=== PATIENT | female | born 1980 | race Caucasian/White ===

== ENCOUNTER → 2021-06-28 17:07 | Outpatient (BNVA) | payer BC, SELFPAY | PROVIDERS: Family Provider Nurse Practitioner; Visit Provider Nurse Practitioner Family | DX: J02.0 Streptococcal pharyngitis (principal) | CPT/HCPCS: 87880 ==

== ENCOUNTER → 2021-08-01 09:30 | Outpatient (BNVA) | payer BC, MEDICAID, SELFPAY | PROVIDERS: Family Provider Nurse Practitioner; Visit Provider Nurse Practitioner Family | DX: Z20.822 Contact with and (suspected) exposure to COVID-19 (principal) | CPT/HCPCS: 87635 ==

== ENCOUNTER → 2021-08-24 15:06 | Outpatient (BNVA) | payer BC, MEDICAID, SELFPAY | PROVIDERS: Family Provider Nurse Practitioner; Visit Provider Nurse Practitioner Family | DX: J02.9 Acute pharyngitis, unspecified (principal) | CPT/HCPCS: 87880 ==

== ENCOUNTER → 2021-11-09 10:09 | Outpatient (BNVA) | payer BC, MEDICAID, SELFPAY | PROVIDERS: Family Provider Nurse Practitioner; Visit Provider Emergency Medicine | DX: R68.89 Other general symptoms and signs (principal); J02.9 Acute pharyngitis, unspecified | CPT/HCPCS: 87071; 87400; 87880 ==

== ENCOUNTER → 2022-03-28 14:11 | Outpatient (BNVA) | payer BC, MEDICAID, SELFPAY | PROVIDERS: Visit Provider Emergency Medicine | DX: Z20.822 Contact with and (suspected) exposure to COVID-19 (principal); J02.9 Acute pharyngitis, unspecified; J02.0 Streptococcal pharyngitis | CPT/HCPCS: 87426; 87880 ==

== ENCOUNTER → 2022-06-07 13:22 | Outpatient (BNVA) | payer BC, MEDICAID, SELFPAY | PROVIDERS: Visit Provider Nurse Practitioner Family | DX: R05.9 Cough, unspecified (principal); R43.2 Parageusia; J06.9 Acute upper respiratory infection, unspecified | CPT/HCPCS: 87426; 87880 ==

== ENCOUNTER → 2022-07-22 17:23 | Outpatient (BNVA) | payer BC, MEDICAID, SELFPAY | PROVIDERS: Visit Provider Nurse Practitioner Family | DX: R50.9 Fever, unspecified (principal); Z20.822 Contact with and (suspected) exposure to COVID-19 | CPT/HCPCS: 87071; 87426; 87880 ==

== ENCOUNTER → 2022-08-17 14:48 | Outpatient (BNVA) | payer BC, MEDICAID, SELFPAY | PROVIDERS: Visit Provider Emergency Medicine | DX: J02.9 Acute pharyngitis, unspecified (principal) | CPT/HCPCS: 87071; 87880 ==

== ENCOUNTER 2022-09-24 12:09 | Outpatient (CLI) | payer BC, MEDICAID, SELFPAY ==
--- NOTE | 2022-09-24 12:43 | XR_ITS ---
WS: [id number] Lumbar spine, 3 views, 09/24/2022 Clinical Data: CHRONIC BILATERAL LOW BACK PAIN W/BILATERAL SCIATICA Comparison: None. Findings: No compression fractures or subluxation is seen. There is degenerative disc narrowing at L4-L5 and L5 -S1. There is osteophyte formation at L4-L5. The transverse processes and SI joints are normal. XR/XR lumbar spine 2-3V* [id number] Impression: Degenerative disc narrowing at L4-L5 and L5-S1 with accompanying osteoarthritis
--- NOTE | 2022-09-24 12:57 | XR_ITS ---
WS: [id number] Sacroiliac joints, 3 views, 09/24/2022 Clinical Data: CHRONIC BILATERAL LOW BACK PAIN WITH BILATERAL SCIATICA Comparison: None. Findings: The SI joints are normal in width. No erosion, sclerosis or destruction is seen. There are no fractur es or dislocations. The adjacent visualized pelvis and hips are unremarkable. XR/XR sacroiliac jts m 3V [id number] Impression: Negative SI joints.
== END 2022-09-24 12:10 | disposition home or self-care (01) ==
PROVIDERS: PCP Family Medicine; Visit Provider Family Medicine
DX: M54.42 Lumbago with sciatica, left side (principal); M54.41 Lumbago with sciatica, right side; G89.29 Other chronic pain; M48.061 Spinal stenosis, lumbar region without neurogenic claudication; M48.07 Spinal stenosis, lumbosacral region; M47.816 Spondylosis without myelopathy or radiculopathy, lumbar region; M47.817 Spondylosis without myelopathy or radiculopathy, lumbosacral region
CPT/HCPCS: 72100; 72202

== ENCOUNTER 2023-01-02 08:34 | Outpatient (CLI) | payer BC, MEDICAID, SELFPAY ==
[2023-01-02 09:23] LABS: Basophils % 0.8 %; Eosinophils # 0.2 10^3/uL (0.0-0.8); Eosinophils % 4.2 %; Hematocrit 38.5 % (37.0-47.0); Hemoglobin 12.7 g/dL (11.5-15.3); Lymphocytes # 1.9 10^3/uL (0.8-4.8); Mean Corpuscular Hemoglobin 31.4 pg (28.0-34.0); Mean Corpuscular Volume 95.1 fl (81-99); Mean Platelet Volume 9.4 fL (7.4-10.4); Monocytes # 0.5 10^3/uL (0.2-0.9); Monocytes % 10.1 %; Neutrophils # 2.55 10^3/uL (1.8-7.7); Neutrophils % 48.5 %; Nucleated Red Blood Cells % 0 %; Platelet Count 275 10^3/cmm (130-400); Red Blood Count 4.05 10^6/uL (4.1-5.3); Red Cell Distribution Width 13.4 % (12.1-15.1); White Blood Count 5.3 10^3/uL (4.0-10.0)
[2023-01-02 09:53] LABS: Iron 62 ug/dL (37-145); Percent Saturation 23.4 % (20-50); Total Iron Binding Capacity 264 mcg/dl; Unsaturated Iron Binding 202 ug/dL (112-347)
[2023-01-02 10:25] LABS: Free T4 Free Thyroxine 1.28 ng/dL (0.82-1.77)
== END 2023-01-02 08:35 | disposition home or self-care (01) ==
PROVIDERS: PCP Family Medicine; Visit Provider Family Medicine
DX: E03.9 Hypothyroidism, unspecified (principal); D50.0 Iron deficiency anemia secondary to blood loss (chronic)
CPT/HCPCS: 36415; 83540; 83550; 84439; 84443; 85025

== ENCOUNTER → 2023-04-20 15:26 | Outpatient (BNVA) | payer BC, MEDICAID, SELFPAY | PROVIDERS: PCP Family Medicine; Visit Provider Registered Nurse Neonatal Intensive Care | DX: R50.9 Fever, unspecified (principal); B34.9 Viral infection, unspecified | CPT/HCPCS: 87426 ==

== ENCOUNTER 2023-11-09 07:55 | Outpatient (CLI) | payer BC, MEDICAID, SELFPAY ==
--- NOTE | 2023-11-09 07:59 | MM_ITS ---
WS: [id number] BILATERAL SCREENING DIGITAL TOMOSYNTHESIS MAMMOGRAM WITH CAD HISTORY: SCREENING COMPARISON: 12/10/2021 Bilateral CC and MLO views with tomosynthesis and synthetic mammography submitted. Computer aided det ection analyzed. Breast composition: There are scattered areas of fibroglandular density. No suspicious masses, microc alcifications or architectural distortion. Benign calcifications in each breast. MM/[place] [id number] IMPRESSION: BI-RADS: 2-Benign FOLLOW UP: 1 Year Follow-up
== END 2023-11-09 07:56 | disposition home or self-care (01) ==
LOC: RAD 07:55
PROVIDERS: PCP Family Medicine; Visit Provider Family Medicine
DX: Z12.31 Encounter for screening mammogram for malignant neoplasm of breast (principal)
CPT/HCPCS: 77063; 77067

== ENCOUNTER 2024-02-22 09:54 | Outpatient (CLI) | payer BC, MEDICAID, SELFPAY ==
[2024-02-22 10:42] LABS: Alanine Aminotransferase 24 U/L (0-33); Albumin Level 4.4 g/dL (3.5-5.2); Alkaline Phosphatase 59 U/L (35-105); Anion Gap 15.2 (5-19); Aspartate Amino Transferase 17 U/L (0-32); Blood Urea Nitrogen 14 mg/dL (6-20); Calcium 8.9 mg/dL (8.5-10.5); Carbon Dioxide 23 mmol/L (22-29); Chloride 104 mmol/L (98-107); Chol HDL Ratio 2.79 mg/dL (0.0-4.40); Cholesterol 109 mg/dL (0-200); Globulin 2.4 g/dL (1.3-4.6); Glomerular Filtration Rate 67.7 mL/min (90-130); Glucose 87 mg/dL (65-115); HDL Cholesterol 39 mg/dL (60-100); LDL Cholesterol Calculated 51 mg/dL (50-129); LDL HDL Ratio 1.31 RATIO (0.00-3.22); Magnesium 1.9 mg/dL (1.7-2.3); Osmolality Calculated 286 mOsm/kg (285-295); Potassium 4.2 mmol/L (3.5-5.1); Sodium 138 mmol/L (136-145); Total Bilirubin 0.4 mg/dL (0.15-1.2); Total Protein 6.8 g/dL (6.6-8.7); Triglycerides 94 mg/dL (0-150)
== END 2024-02-22 09:55 | disposition home or self-care (01) ==
LOC: LAB 09:56
PROVIDERS: PCP Family Medicine; Visit Provider Family Medicine
DX: E78.2 Mixed hyperlipidemia (principal); E03.9 Hypothyroidism, unspecified
CPT/HCPCS: 36415; 80053; 80061; 83735; 84443

== ENCOUNTER 2024-07-05 21:54 | Emergency (ER) | payer BC, MEDICAID, SELFPAY ==
[2024-07-05 21:59] VITALS: BP 145/95; PULSE 77; RESP 14; TEMP 36.1; O2SAT 100
[2024-07-05] MEDS: lidocaine 2% INJ 20 mL 10 ML INJECTION (22:36)
[2024-07-05] MEDS: tetanus-dipt-pertussis 0.5 mL SDV IM (22:36)
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
[2024-07-05] MEDS: cephALEXin 500 mg Capsule PO (22:44)
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
[2024-07-06 00:05] VITALS: BP 132/80; PULSE 64; RESP 16; O2SAT 99
== END 2024-07-06 00:06 | disposition home or self-care (01) ==
PROVIDERS: Emergency Provider Physician Assistant; PCP Family Medicine
DX: S61.412A Laceration without foreign body of left hand, initial encounter (principal); W26.0XXA Contact with knife, initial encounter; Z87.891 Personal history of nicotine dependence
CPT/HCPCS: 12002; 73130; 90471; 90715; 99283

== ENCOUNTER 2024-09-26 08:57 | Outpatient (CLI) | payer BC, MEDICAID, SELFPAY ==
--- NOTE | 2024-09-26 09:02 | MM_ITS ---
WS: [id number] DIAGNOSTIC BILATERAL DIGITAL BREAST TOMOSYNTHESIS MAMMOGRAPHY WITH CAD RIGHT breast ultrasound, limited History: Palpable area RIGHT upper outer quadrant, posterior. COMPARISON: 11/09/2023, 12/10/2021 TECHNIQUE: Bilateral craniocaudad, mediolateral oblique, and mediolateral views are submitted with tomosynthesis and SM. Computer aided detection utilized. Breast composition: There are scattered areas of fibroglandular density. Triangular palpable marker in the upper outer quadrant of the RIGHT breast is noted. There is no associated mass or distortion. There are a few benign calcifications in each breast which are stable. No new mass or nodule. RIGHT breast ultrasound, limited. Ultrasound directed to the palpable abnormality at 9:00, 5 cm from the nipple. Nearly isoechoic ovoid mass measures 2.0 x 2.0 x 0.5 cm. This is a very superficial mass and most consistent with a lipoma. There is no increased vascularity. MM/MM diag BI tomosynthesis [id number] IMPRESSION: BI-RADS: 2 - Benign. FOLLOW UP: 1 Year Follow-up Palpable area in the RIGHT breast at 9:00 corresponds to a benign lipoma.
== END 2024-09-26 08:58 | disposition home or self-care (01) ==
LOC: RAD 08:58
PROVIDERS: PCP Family Medicine; Visit Provider Nurse Practitioner Family
DX: R59.0 Localized enlarged lymph nodes (principal); R92.323 Mammographic fibroglandular density, bilateral breasts; R92.1 Mammographic calcification found on diagnostic imaging of breast; N63.15 Unspecified lump in the right breast, overlapping quadrants
CPT/HCPCS: 76642; 77062; G0279

== ENCOUNTER 2024-12-22 07:03 | Outpatient (CLI) | payer BC, MEDICAID, SELFPAY ==
--- NOTE | 2024-12-22 07:12 | MR_ITS ---
WS: [id number] MRI LUMBAR SPINE NONCONTRAST HISTORY: LOW BACK PAIN WITH BILATERAL SCIATICA COMPARISON: None available. TECHNIQUE: Sagittal and axial multisequence imaging is submitted. Mild LEFT curvature lumbar spine and mild straightening of the normal lordosis. Disc spaces are slightly narrowed and desiccated at L3-4, L4-5 and L5-S1. No acute fractures or marrow edema. Conus terminates normally at L1-2 disc level. T12-L1: Bilateral small paracentral disc protrusions with mild contact on the thecal sac. No stenosis. L1-L2: Normal. L2-L3: Mild facet arthritis. No stenosis. L3-L4: Very slight retrolisthesis of L3. Annular disc bulging and osteophytic ridging. Bilateral disc osteophyte complexes in the foramen. There is mild disc contact on the traversing L4 nerve roots, RIGHT greater than LEFT. Mild to moderate bilateral foraminal stenosis. L4-L5: Diffuse annular disc bulging with osteophytosis. Moderate ligamentum flavum and facet arthritis. There is encroachment and narrowing of the thecal sac. Moderate central with severe bilateral subarticular recess stenosis. Greater encroachment upon the RIGHT traversing L5 nerve root. Disc osteophyte disease extends into the foramen causing mild to moderate bilateral foraminal stenosis. L5-S1: Mild diffuse annular disc bulging with facet and ligamentum flavum hypertrophy. Disc osteophyte complexes bilaterally in the foramina. Mild bilateral foraminal stenosis. Paravertebral soft tissues are normal. MR/MR lumbar spine wo con* [id number] IMPRESSION: 1. L4-5: Moderate central with severe bilateral subarticular recess stenosis. Disc osteophyte disease contributing to mild to moderate bilateral foraminal st enosis. 2. L5-S1: Mild bilateral foraminal stenosis due to disc osteophyte complexes. 3. L3-4: Bilateral disc osteophyte complexes in the foramina. Mild to moderate bilateral foraminal stenosis. 4. Mild disc contact on the traversing L4 nerve roots, RIGHT greater than LEFT .
== END 2024-12-22 07:04 | disposition home or self-care (01) ==
PROVIDERS: PCP Family Medicine; Visit Provider Nurse Practitioner Family
DX: M48.061 Spinal stenosis, lumbar region without neurogenic claudication (principal); M25.78 Osteophyte, vertebrae; M99.63 Osseous and subluxation stenosis of intervertebral foramina of lumbar region
CPT/HCPCS: 72148